=== PATIENT | male | born 1990 | race Caucasian/White ===

== ENCOUNTER 2021-01-18 06:42 | Outpatient (CLI) | payer OTHER, SELFPAY ==
--- NOTE | ~2021-01-18 | MR_ITS ---
EXAMINATION: MR knee RT wo con DATE: 01/18/2021 07:56 INDICATION: Right lower leg injury presenting with right knee pain and swelling TECHNIQUE: Magnetic resonance imaging (MRI) of the right knee was performed without intravenous contr ast. Sequences included coronal PD-weighted FSE, coronal PD-weighted FS FSE, sagittal T2-weighted FS E, sagittal PD-weighted FS FSE and axial PD weighted fat saturated FSE. COMPARISON: None. FINDINGS: Medial compartment: Medial meniscus is normal. Articular cartilage is normal. Lateral compartment: Lateral meniscus is normal. Partial-thickness fissuring appears to involve less than 50% the cartilag e thickness along the posterior aspect of the lateral tibial plateau. There is mild subarticular alisa a along the medial side of the lateral tibial plateau along the shoulder the intercondylar eminence w hich could be related to overlying chondral fissuring or due to a posttraumatic bone contusion. Carti scott along the weightbearing lateral femoral condyle is normal. Patellofemoral compartment: There is an oblique band of full and near full-thickness chondral fissuring and fibrillation with starch crab bmeat-like appearance extending from superolaterally at the medial facet across the patellar apical r idge to the inferolateral at the lateral facet. Minimal subarticular edema at the central aspect of t he patellar apical ridge. Trochlear cartilage is normal. Ligaments and tendons: Anterior and posterior cruciate ligaments are normal. There is increased signal and thickening with a rchitectural distortion of the medial retinaculum laterally along the inferior aspect of its patellar attachment and more prominently medially along its confluence with the medial collateral ligament in cluding partial tear of the anterior portion of the medial collateral ligament. The fibular collatera l ligament complex is normal. The extensor mechanism is normal. The visualized medial and lateral ham string tendons as well as the iliotibial band are normal. Fluid: Large right knee joint effusion. No loose osteochondral bodies identified. Osseous/other: There is marrow edema along the nonarticular lateral margin of the lateral trochlea consistent with a bone contusion in the pattern of a patellar dislocation/relocation injury. No fracture or pathologic marrow replacing process. IMPRESSION: 1. Lateral patellar dislocation/relocation injury pattern with tear of the medial patellar retinaculu m including a partial tear of the anterior portion of the medial collateral ligament, bone contusion along the nonarticular lateral trochlea and oblique band of high-grade chondromalacia with fissuring and fibrillation representing an associated acute chondral injury. 2. 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 3. Menisci and cruciate ligaments are normal. Reviewed, dictated and finalized at location B. [employer]ATE IMPRESSION: 1. Lateral patellar dislocation/relocation injury pattern with tear of the medi al patellar retinaculum including a partial tear of the anterior portion of the medial collateral ligament, bone contusion along the nonarticular lateral troc hlea and oblique band of high-grade chondromalacia with fissuring and fibrillat ion representing an associated acute chondral injury. 2. 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 3. Menisci and cruciate ligaments are normal.
== END 2021-01-18 06:43 | disposition home or self-care (01) ==
LOC: ANHIMG 06:45
PROVIDERS: PCP Physician Assistant; Visit Provider Physician Assistant
DX: S89.91XA Unspecified injury of right lower leg, initial encounter (principal); X58.XXXA Exposure to other specified factors, initial encounter
CPT/HCPCS: 73721

== ENCOUNTER 2021-05-08 16:05 | Emergency (ER) | payer OTHER, SELFPAY ==
[2021-05-08 16:15] VITALS: BP 162/92; PULSE 98; RESP 16; TEMP 37.1; O2SAT 99
--- NOTE | 2021-05-08 16:32 | ED.EAR ---
HPI - Ear Problem General Chief complaint: Ear Stated complaint: Ear Pain Source: patient and RN notes reviewed Limitations: no limitations History of Present Illness HPI Narrative: The patient, a non-smoker/occasional drinker, presents with right ear discomfort. Patient states he has a over week long history of right-sided facial pain, that he he feels begins along his right jawline and radiates upward. No visible swelling, fever, actual sore throat-but he does have especially nighttime acid reflux. No bruxism/teeth grinding, ear discharge-but he is a summer swimmer. Related Data Home Medications Medication Instructions Recorded Confirmed alprazolam 0.5 mg tablet 0.5 mg PO BID PRN 05/23/20 03/05/21 vilazodone 20 mg tablet 20 mg PO DAILY 05/24/20 03/05/21 Allergies Allergy/AdvReac Type Severity Reaction Status Date / Time prednisone Allergy Mild Dry Mouth Verified 01/22/21 15:59 Review of Systems Review of Systems: Narrative: The patient has been informed that they may have pre-hypertension or Hypertension based on a BP reading in the department. I recommend that the patient call the primary care provider listed on their discharge instructions or a physician of their choice this week to arrange follow up for further evaluation of possible pre-hypertension or Hypertension General/Constitutional: No weight loss,fever Eyes: N0: Redness,discharge Ears/Nose/Throat: No: Epistaxis,ear discharge Respiratory: Denies: Hemoptysis Gastrointestinal: No Vomiting, Bleeding-rectal Skin: No Lumps, eruption Neurologic: No Focal Weakness,Sz Hematologic: Denies: Petechiae/Purpura Psychiatric: No: Suicida ideationl All Other Systems: Reviewed and Negative [facility] Past Medical History Medical History Alcoholism Anxiety Hypertension Sleep disorder Family History Family History Father Hypertension Mother Patient's mother is in good health Sibling Patient's sister is in good health Other Breast cancer Diabetes mellitus High cholesterol Lung cancer Neuropathy Social History Social History Tobacco type: smokeless tobacco Smokeless tobacco user: chewing tobacco Second hand tobacco smoke exposure: No Alcohol intake: current Drinks per week: 40 Substance use: never Substance use type: does not use Gender identity (if verbalized by the patient): Male Comments At time of signature, agree with nursing past medical, surgical, social and family history. There is no relevant family history pertinent to the presenting complaint Exam Narrative: Exam Narrative: General Appearance: Well appearing, No distress EYE: PERRLA, Conjunctiva clear Skin: Warm, Dry, TMJ nontender Ears: External ear normal, TMs partially obstructed by cerumen; right EAC slightly tender Nose: Normal nose Mouth/Throat: Normal appearing, Normal lips, inflamed gingiva lower jawline, supple, Respiratory: Airway patent, No respiratory distress Musculoskeletal: Full ROM Neurological: A&O x3, CN II-X intact Psychiatric: Normal mood, Normal affect Course Vital Signs Vital signs: Vital Signs Temperature 98.8 F 05/08/21 16:15 Pulse Rate 98 05/08/21 16:15 Respiratory Rate 16 05/08/21 16:15 Blood Pressure 162/92 H 05/08/21 16:15 Pulse Oximetry 99 05/08/21 16:15 Temperature 98.8 F 05/08/21 16:15 Pulse Rate 98 05/08/21 16:15 Respiratory Rate 16 05/08/21 16:15 Blood Pressure 162/92 H 05/08/21 16:15 Pulse Oximetry 99 05/08/21 16:15 Medical Decision Making Vital Signs Vital Signs: Vital Signs Temperature 98.8 F 05/08/21 16:15 Pulse Rate 98 05/08/21 16:15 Respiratory Rate 16 05/08/21 16:15 Blood Pressure 162/92 H 05/08/21 16:15 Pulse Oximetry 99 05/08/21 16:15 Temperature 98.8 F
== END 2021-05-08 16:38 | disposition home or self-care (01) ==
PROVIDERS: Emergency Provider Emergency Medicine; PCP Internal Medicine
DX: H92.01 Otalgia, right ear (principal); K05.10 Chronic gingivitis, plaque induced; F17.290 Nicotine dependence, other tobacco product, uncomplicated; F41.9 Anxiety disorder, unspecified; I10 Essential (primary) hypertension; G47.9 Sleep disorder, unspecified
CPT/HCPCS: 99213; G0463

== ENCOUNTER 2021-11-29 11:56 | Outpatient (CLI) | payer OTHER, SELFPAY ==
--- NOTE | ~2021-11-29 | XR_ITS ---
EXAMINATION: XR ribs RT 2V w CXR 2V DATE: 11/29/2021 12:14 INDICATION: Dorsalgia, unspecified. TECHNIQUE: Frontal and lateral views of the chest and 2 views on 3 radiographs of the right ribs were obtained. COMPARISON: Chest 2 views 06/11/2004 FINDINGS: CHEST TWO VIEWS: The chest demonstrates clear lungs without pneumonia, pleural effusion, or pneumotho rax. The heart size is normal. RIGHT RIBS: There is no rib fracture. IMPRESSION: 1. No rib fracture. Reviewed, dictated and finalized at location B. US HAND IMPRESSION: 1. No rib fracture.
--- NOTE | ~2021-11-29 | XR_ITS ---
EXAMINATION: XR thoracic spine 3V DATE: 11/29/2021 12:14 INDICATION: Dorsalgia, unspecified. TECHNIQUE: 3 views of thoracic spine standing were obtained. COMPARISON: None. FINDINGS: There is 6 degrees levocurvature of thoracic spine. Vertebral body heights and intervertebr al disc heights are normal. IMPRESSION: 1. No etiology for the patient's symptoms. Reviewed, dictated and finalized at location B. INT SORTER
== END 2021-11-29 11:57 ==
PROVIDERS: Visit Provider Internal Medicine
DX: M54.9 Dorsalgia, unspecified (principal)
CPT/HCPCS: 71046; 71100; 72072

== ENCOUNTER 2023-02-24 15:59 | Outpatient (CLI) | payer BC, SELFPAY ==
--- NOTE | ~2023-02-24 | US_ITS ---
US scrotum doppler INDICATION: Right testicular pain TECHNIQUE: Testicular sonogram utilizing grayscale and color Doppler FINDINGS: The testes are normal in size and appearance. No focal lesions are seen. The right testes measures 4 x 2.3 x 2.7 cm centimeters, and the left testis measures 3.8 x 2.1 x 2.7 cm cm. There is n ormal vascular flow to both testes. There are small bilateral epididymal cysts, largest on the right measuring 2 mm. There is no varicocele or hydrocele. IMPRESSION: 1. Unremarkable testicular ultrasound. Reviewed, dictated and finalized at location B.
--- NOTE | ~2023-02-24 | MR_ITS ---
MRI of the lumbar spine Clinical History: Back pain Technique: Axial T2-weighted images, and sagittal T1-weighted, T2-weighted, and and T2 fat-sat images were acquired. Findings: There is no fracture or subluxation of the lumbar spine. Vertebral bodies maintain normal h eight and alignment. No focal bone marrow signal abnormality seen. At L1-L2, L2-L3, L3-L4, L4-L5, there is no disc bulge or herniation. There are mild facet joint degen erative changes at these levels. No spinal canal stenosis or neural foraminal narrowing at these leve ls. At L5-S1, there is a central disc protrusion with annular fissure present. No ayden spinal canal sten osis present, though there is mild effacement of the ventral thecal sac. There is mild left neural fo raminal narrowing. Right neural foramen preserved. Paravertebral soft tissues are unremarkable. Impression: Central disc protrusion with annular fissure at L5-S1, with associated mild left neural foraminal minor rowing. Reviewed, dictated and finalized at [facility]. Impression: Central disc protrusion with annular fissure at L5-S1, with associated mild lef t neural foraminal narrowing.
== END 2023-02-24 16:00 | disposition home or self-care (01) ==
PROVIDERS: PCP Internal Medicine; Visit Provider Physician Assistant
DX: N50.811 Right testicular pain (principal); M51.27 Other intervertebral disc displacement, lumbosacral region
CPT/HCPCS: 72148; 76870; 93976

== ENCOUNTER 2025-11-12 12:12 | Emergency (ER) | payer BC, SELFPAY ==
[2025-11-12 12:49] VITALS: BP 166/100; PULSE 104; RESP 18; TEMP 37.3; O2SAT 100
--- NOTE | 2025-11-12 13:03 | ED.GENADULT ---
HPI - General Adult General Chief complaint: Unspecified Stated complaint: prescription refill Time Seen by Provider: 11/12/25 12:55 Source: patient Mode of arrival: ambulatory Limitations: no limitations History of Present Illness HPI narrative: Nicolas is a 35-year-old male patient presenting to the clinic today for a medication refill. He reports he is out of his lisinopril 20 mg daily blood pressure medicine and his vilazodone 40 mg daily. He states he has been without these medications for approximately 3 days. He has and attempted to get in touch with his PCP over the last few days however they have not responded back to him. Denies any other concerns at this time. He feels well controlled on these medications. He denies any suicidal or homicidal ideation. Related Data Home Medications ?Medication ?Instructions ?Recorded ?Confirmed ?Last Taken ?Type alprazolam 0.5 mg tablet 0.5 mg PO BID PRN anxiety 05/23/20 02/05/23 Unknown History vilazodone 40 mg tablet mg 11/12/25 Unknown History Allergies Allergy/AdvReac Type Severity Reaction Status Date / Time prednisone AdvReac Mild Dry Mouth Verified 11/12/25 12:50 Review of Systems Review of Systems: Pertinent positives per HPI. Patient denies any fever, chills, rash, headache, visual changes, dizziness, cough, runny nose, sore throat, shortness of breath, chest pain, palpitations, nausea, vomiting, diarrhea, constipation, abdominal pain, or any urinary issues. [facility] Past Medical History Medical History Alcoholism Anxiety Hypertension Sleep disorder Family History Family History Father Hypertension Mother Patient's mother is in good health Sibling Patient's sister is in good health Other Breast cancer Diabetes mellitus High cholesterol Lung cancer Neuropathy Social History Social History Smoking status: Never smoker Tobacco type: smokeless tobacco Smokeless tobacco user: chewing tobacco Second hand tobacco smoke exposure: No Alcohol intake: current Drinks per week: 40 Substance use: never Substance use type: does not use Lack of Transportation: No Lack of Food: Never True Current Housing: I Have Housing Concerned About Future Housing: No Difficulty Paying Gas/Electric Bills: YES Difficulty Paying for Meds: No Currently Unemployed: No Education: High School Diploma/GED Difficulty w/ Childcare or Family Care: No Gender identity (if verbalized by the patient): Male Comments At the time of my signature, I reviewed and agree with the nursing past medical, surgical, social, and family history. There is no relevant family history pertinent to the patient complaint. Exam Narrative: General: Well-developed, well nourished, in no apparent distress Head: Normocephalic, atraumatic Eyes: Pupils equally round and reactive to light bilaterally, EOM intact, sclera and conjunctive clear, no discharge, lids normal Ears: TMs intact and clear, ear canals clear, no drainage, grossly hearing normal. Nose: Nares patent, no discharge, no inflammation, no sinus tenderness. Mouth: Oropharynx without lesions or masses, good dentition, MMM. Neck: Supple, trachea midline, no enlargement of anterior or posterior cervical nodes, no thyroid masses or goiter palpable. Cardio: Regular rate and rhythm, s1 and s2 normal, no murmur appreciated. Resp: Clear to auscultation bilaterally anteriorly and posteriorly, no rhonchi, rales, wheezing or rubs Course Course Level of Care: Express Care Visit Vital Signs Vital signs: Vital Signs Temperature 37.3 C 11/12/25 12:49 Pulse Rate 104 H 11/12/25 12:49 Respiratory Rate 18 11/12/25 12:49 Blood Pressure 166/100 H 11/12/25 12:49 Pulse Oximetry 100 11/12/25 12:49 Oxygen Delivery Room Air 11/12/25 12:49 Temperature 37.3 C 11/12/25 12:49 Pulse Rate 104 H 11/12/25 12:49 Respiratory Rate 18 11/12/25 12:49 Blood Pressure 166/100 H 11/12/25 12:49 Pulse Oximetry 100 11/12/25 12:49 Oxygen Delivery Room Air 11/12/25 12:49 MDM MDM Narrative Medical decision making narrative: At the time of visit patient is resting comfortably on the exam table. Patient appears to be nontoxic. In the clinic today for a medication refill. He reports he is out of his lisinopril 20 mg daily blood pressure medicine and his vilazodone 40 mg daily. He states he has been without these medications for approximately 3 days. He has and attempted to get in touch with his PCP over the last few days however they have not responded back to him. Denies any other concerns at this time. He feels well controlled on these medications. He denies any suicide or homicidal ideation. Patient has normal exam in the clinic today. Plan: Medication refills were given on lisinopril and vilazodone for 1 week. Explained to the patient that he must get a hold of his PCP this week for further medication refills. Supportive measures were discussed with the patient and they voiced understanding discharge instructions and agrees to treatment plan. Return precautions reviewed Differential Diagnosis Differential Diagnosis: Medication refill, hypertension, depression Discharge Plan Discharge Clinical Impression: Medication refill Hypertension Qualifiers: Hypertension type: unspecified Qualified Code(s): I10 - Essential (primary) hypertension Depression Qualifiers: Depression Type: unspecified Qualified Code(s): F32.A - Depression, unspecified Patient Disposition: Home Condition: Stable Instructions: Antibiotic Form, Depression (ED), Hypertension (ED) Additional Instructions: Take medications as prescribed-lisinopril and vilazodone Follow-up with your primary care doctor soon as possible You have an elevated blood pressure in the clinic today and I recommend follow-up with primary care physician to have this reevaluated within the next week if symptoms persist. [place] [employer] guidelines state that normal blood pressure is 120/80 or less. Anything over 120/80 is considered elevated and should be monitored. You may need to decrease you salt intake and eat a heart healthy diet to help lower you blood pressure, other treatments would include decreasing stress, weight loss, stop caffeine, and quit smoking. Your primary care provider can determine whether you need to start antihypertensive medications. Untreated high blood pressure can cause dizziness, headaches, visual changes, blindness, kidney failure, stroke, heart attack, and male impotence. Patient Language: [place] Prescriptions: New vilazodone 40 mg tablet 40 mg PO DAILY 7 Days Qty: 7 0RF Rx Instructions: must administer with a meal/food lisinopril 20 mg tablet 20 mg PO DAILY 7 Days Qty: 7 0RF No Action vilazodone 40 mg tablet alprazolam 0.5 mg tablet 0.5 mg PO BID PRN (Reason: anxiety) pantoprazole 40 mg tablet,delayed release (DR/EC) 40 mg PO QAM Qty: 90 1RF lisinopril 20 mg tablet See Rx Instructions .ROUTE .COMPLEX Qty: 90 0RF Dose Instruction: TAKE 1 TABLET BY MOUTH DAILY Rx Instructions: TAKE 1 TABLET BY MOUTH DAILY Follow-up/Referrals: gR Almeida APRN [Primary Care Provider, Internal Medicine] Time of Disposition: 13:05 Quality NIHSS Nursing Documentation ED NIHSS nursing documentation: reviewed/agree
== END 2025-11-12 13:20 | disposition home or self-care (01) ==
PROVIDERS: Emergency Provider Nurse Practitioner Family; PCP Nurse Practitioner
DX: Z76.0 Encounter for issue of repeat prescription (principal); I10 Essential (primary) hypertension; F32.A Depression, unspecified; F17.220 Nicotine dependence, chewing tobacco, uncomplicated; F41.9 Anxiety disorder, unspecified
CPT/HCPCS: 99211; 99213; G0463